=== PATIENT | male | born 1950 | race Caucasian/White ===

== ENCOUNTER → 2016-09-02 | Outpatient (CLI) | payer OTHER ==
[~2016-09-02] MED LIST: ARIP10TA13 PO; INSULIN 70/30 SQ; LACT10SO28 PO; MORP30TA81 PO
== END ==
LOC: CYBERKNIFE 08-30 08:30 → ROC 08:00
PROVIDERS: ATTEND Radiology Radiation Oncology
DX: Z02.9 Encounter for administrative examinations, unspecified (principal)